=== PATIENT | male | born 1960 | race Caucasian/White ===

== ENCOUNTER 2021-11-18 09:59 | Inpatient (IN) | payer BC, OTHER ==
[2021-11-18] MEDS ORDERED: Sodium Chloride 0.9% 2.5 ML Syringe FLUSH PRN ×2 (11:27→13:17)
[2021-11-18] MEDS ORDERED: Sodium Chloride 0.9% 10 ML Syringe FLUSH PRN ×2 (11:27→13:17)
[2021-11-18] MEDS ORDERED: Sodium Chloride 0.9% 1,000 ML IV SCH (12:00)
[2021-11-18 12:20] LABS: BLOOD UREA NITROGEN,BUN 11 mg/dL (7.0-18.0); CARBON DIOXIDE,CO2 25.4 mmol/L (21.0-32.0); CHLORIDE,CL 100 mmol/L (98-107); GLUCOSE RANDOM 142 mg/dL (74-106); POTASSIUM,K 4.3 mmol/L (3.5-5.1); SODIUM,NA 137 mmol/L (136-148)
[2021-11-18 13:12] LABS: HEMOGLOBIN A1C 6.1 %
[2021-11-18] MEDS ORDERED: VANCOmycin 1.75 GM/350 ML 1.75 GM in Premix Bag 1 BAG IV ONE (13:15)
[2021-11-18] MEDS ORDERED: Acetaminophen 325 MG Tab PO PRN (13:17)
[2021-11-18] MEDS ORDERED: oxyCODONE 5 MG Tab PO PRN (13:17)
[2021-11-18] MEDS ORDERED: Morphine 2 MG/ML SYRINGE IVPUSH PRN (13:17)
[2021-11-18] MEDS ORDERED: Ondansetron 4 MG/2 ML SDV IVPUSH PRN (13:18)
[2021-11-18] MEDS ORDERED: Docusate Sodium 100 MG Cap PO PRN (13:18)
[2021-11-18] MEDS ORDERED: Albuterol/Ipratropium 3.0-0.5 MG/3 ML Neb Soln NEB PRN (13:18)
[2021-11-18] MEDS ORDERED: Iopamidol 755 MG/ML 500 ML Multipack Bottle IVPUSH STA (14:00)
[2021-11-18] MEDS: Sodium Chloride 0.9% 1,000 ML IV SCH ×2 (15:52→19:28)
[2021-11-18] MEDS: cefTRIAXone 1 GM in Sodium Chloride 0.9% 50 ML IV SCH (16:15)
[2021-11-18] MEDS: Enoxaparin 40 MG/0.4 ML Syringe SUBCUT SCH (16:16)
[2021-11-18] MEDS: Ibuprofen 400 MG Tab PO PRN (18:09)
[2021-11-18] MEDS: VANCOmycin 1.75 GM/350 ML 1.75 GM in Premix Bag 1 BAG IV SCH (20:22)
[2021-11-19] MEDS: Ibuprofen 400 MG Tab PO PRN ×2 (00:46→20:53)
[2021-11-19] MEDS: Sodium Chloride 0.9% 1,000 ML IV SCH ×2 (03:23→05:11)
[2021-11-19] MEDS: VANCOmycin 1.75 GM/350 ML 1.75 GM in Premix Bag 1 BAG IV SCH ×3 (05:09→16:31)
[2021-11-19 06:32] LABS: BLOOD UREA NITROGEN,BUN 12 mg/dL (7.0-18.0); CARBON DIOXIDE,CO2 22.8 mmol/L (21.0-32.0); CHLORIDE,CL 104 mmol/L (98-107); GLUCOSE RANDOM 114 mg/dL (74-106); POTASSIUM,K 3.9 mmol/L (3.5-5.1); SODIUM,NA 137 mmol/L (136-148)
[2021-11-19] MEDS: Pantoprazole 40 MG Tab.CR PO SCH (07:16)
[2021-11-19] MEDS ORDERED: Melatonin 3 MG Tab PO PRN (09:51)
[2021-11-19] MEDS: cefTRIAXone 1 GM in Sodium Chloride 0.9% 50 ML IV SCH (14:24)
[2021-11-19] MEDS ORDERED: VANCOmycin 1.75 GM/350 ML 1.75 GM in Premix Bag 1 BAG IV SCH (14:30)
[2021-11-19] MEDS: Enoxaparin 40 MG/0.4 ML Syringe SUBCUT SCH (14:31)
[2021-11-20] MEDS: VANCOmycin 1.75 GM/350 ML 1.75 GM in Premix Bag 1 BAG IV SCH (04:17)
[2021-11-20] MEDS: Pantoprazole 40 MG Tab.CR PO SCH (06:44)
[2021-11-20 06:49] LABS: BLOOD UREA NITROGEN,BUN 8 mg/dL (7.0-18.0); CARBON DIOXIDE,CO2 26.6 mmol/L (21.0-32.0); CHLORIDE,CL 103 mmol/L (98-107); GLUCOSE RANDOM 119 mg/dL (74-106); POTASSIUM,K 3.8 mmol/L (3.5-5.1); SODIUM,NA 138 mmol/L (136-148)
== END 2021-11-20 12:00 | disposition home or self-care (01) | DRG 603 ==
LOC: MW.ED 09:59 → MW.MS 12:57
PROVIDERS: ADMIT Internal Medicine; ATTEND Internal Medicine
DX: L03.116 Cellulitis of left lower limb (principal); F17.210 Nicotine dependence, cigarettes, uncomplicated; M19.90 Unspecified osteoarthritis, unspecified site; Z20.822 Contact with and (suspected) exposure to COVID-19; E66.09 Other obesity due to excess calories; Z68.32 Body mass index [BMI] 32.0-32.9, adult
CPT/HCPCS: 36415; 73590-26-LT; 73590-LT; 73620-26-LT; 73620-LT; 73701-26-LT; 73701-LT; 80048; 80053; 80202; 83036; 83605; 83735; 85025; 87040; 93971-26-LT; 93971-LT; 99285-25; A9270-GY; J0696; J1650; J3370; J3490; J7030; Q9967; U0002

== ENCOUNTER 2025-01-19 13:13 | Emergency (ER) | payer MEDICARE, BC | END 2025-01-19 17:15 | disposition home or self-care (01) | LOC: MW.ED 13:13 | DX: R04.0 Epistaxis (principal); Z91.011 Allergy to milk products; Z88.7 Allergy status to serum and vaccine | CPT/HCPCS: 30901; 99283; A9270; 99282 ==

== ENCOUNTER 2025-01-22 10:52 | Emergency (ER) | payer MEDICARE, BC | END 2025-01-22 11:33 | disposition home or self-care (01) | LOC: MW.ED 10:52 | DX: R04.0 Epistaxis (principal); Z91.011 Allergy to milk products; Z88.7 Allergy status to serum and vaccine | CPT/HCPCS: 30901; 99283; A9270; 99282 ==